=== PATIENT | male | born 1965 | race Caucasian/White ===

== ENCOUNTER → 2016-10-04 | Day surgery (SDC) | payer OTHER ==
[~2016-10-04] VITALS: Ht 177.8 cm; Wt 95.0 kg
[~2016-10-04] MED LIST: BUPIVACAINE HCL PF 0.5% 30 ML VIAL ONE; DEXT 5%-NACL 0.45% 1000 ML INJ 1,000 ML IV SCH; FAMOTIDINE 20 MG/2 ML VIAL ONE; IBUP800T23 PO; LACTATED RINGER'S 1000 ML INJ 1,000 ML ONE; MIDAZOLAM HCL 2 MG/2 ML VIAL ONE; ONDANSETRON HCL 4 MG/2 ML VIAL IV PUSH ONE; POVIDONE IODINE 10% OINT 1 PACKET ONE; PROPOFOL 200 MG/20 ML AMP IV ONE; SODIUM CHLORIDE 0.9% FLUSH 5 ML FLUSH IVF PRN; SODIUM CHLORIDE 0.9% FLUSH 5 ML FLUSH IVF SCH; ceFAZolin 2 GM PREMIX 50 ML ONE
[2016-10-04 07:48] VITALS: BP 130/92; PULSE 78; RESP 20; TEMP 98.3; O2SAT 96
[2016-10-04 08:18] LABS: HEMATOCRIT 40.5 % (39.0-51.0); MEAN CELL VOLUME 91.9 FL (80.0-100.0); MEAN CORPUSCULAR HEMOGLOBIN 31.8 PG (27.0-34.0); MEAN CORPUSCULAR HGB CONC 34.6 % (32.0-36.0); PLATELET COUNT 291 TH/MM3 (150-450); RED BLOOD COUNT 4.41 MIL/MM3 (4.50-5.90); RED CELL DISTRIBUTION WIDTH 12.3 % (11.6-17.2); REVIEW FLAG FINAL; WHITE BLOOD COUNT 5.3 TH/MM3 (4.0-11.0)
--- NOTE | 2016-10-04 09:45 | HP.UPD ---
H&P Update Date: October 04, 2016 Note The Pre-Admit History and Physical Examination regarding the above named patient was reviewed (including, but not limited to, vital signs, medications, allergies, co-morbid conditions), and upon re-examination it is noted that: Indicated with "X" x - the patient's condition has not significantly changed since the last examination. [] - the patient's condition has changed since the last examination. Changes: Babita Guerin MD October 04, 2016 09:45
--- NOTE | 2016-10-04 11:48 | HHI.PR ---
Immediate Post Op Note Procedure Date: October 04, 2016 Pre Op Diagnosis: (1) Mass of finger Post Op Diagnosis: (1) Mass of finger Surgeon: Babita Guerin Conditioner Tender(s): None Procedure: Excision of mass of right index finger. Specimen(s) removed: Mass of right index finger,3.5 x 2.0 cm. Anesthesia: General Drains: None Tourniquet time (min at mmHg) 53 minutes at 220 mm Hg. Patient to: PACU Patient Condition: Good Date/Time of Procedure: SEE SURGICAL CARE RECORD Babita Guerin MD October 04, 2016 11:48
[2016-10-04 12:40] VITALS: BP 149/85; PULSE 78; RESP 16; TEMP 98; O2SAT 99
--- NOTE | 2016-10-06 07:16 | MP ---
cc: CHACHO DUMONT M.D. DATE OF SURGERY 10/04/2016 PREOPERATIVE DIAGNOSIS Mass of right index finger. POSTOPERATIVE DIAGNOSIS Mass of right index finger. PROCEDURES Excision of mass of right index finger. ANESTHESIA General. SURGEON Chacho Dumont MD INDICATIONS A 51-year-old male with slowly growing mass of the right index finger. 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 There were definite bone changes. This included some flattening of the distal portion of the middle phalanx. The origin of the collateral ligament was attached to a portion of bone which had been spared. The tumor did originate from this area and it spread dorsally and palmarlyi. At the completion of the procedure, all of the tumor appeared to have been removed. It measured 3.5 x 2.0 cm. Tourniquet time was 53 minutes. PROCEDURE The patient was seen preoperatively where the site and side were identified and marked. The patient was then taken to the operating room, placed in a supine position. His identity was checked against the arm band and the consent form, site and side confirmed, time-out called prior to beginning the procedure. The right upper extremity was prepped with Hibiclens and draped in the usual sterile fashion. The area to be incised was outlined with a marking pen as a zigzag type incision extending from the dorsal aspect of the tumor to the palmar surface. The oblique portion of the zigzag started dorsally, went palmarly, and then another limb of the incision was designed to go toward the medial part of the finger. The finger was infiltrated with bupivacaine 0.5% plain as a metacarpal head block both palmarly and dorsally. The finger from a glove was placed onto the finger and rolled up to create a tourniquet. At this point a #15 blade was used make a longitudinal incision down through skin, down to the subcutaneous tissue. The incision was started dorsally, went to the palmar surface. The tumor was adjacent to the skin and was carefully dissected free from the skin. The tumor was dissected from the palmar surface and it was well encapsulated in this area. Dissection was then continued dorsally. Some of the dorsal nerves had become part of the tumor and were sacrificed proximally, although there appeared to be no distal end and no function. The dissection was then continued from the palmar surface to the dorsal surface toward the ulnar side of the hand and the tumor was carefully from superficial and deep structures. The origin became clear that it was coming from beneath the extensor tendon just in the area of the head of the middle phalanx. The tumor was amputated at this point and passed off as a pathologic specimen. A rongeur was used to remove the remainder of the tumor. A curette was used to curette the bone from the area where it appeared to have originated. Once this was completed, the area was inspected and suspicious areas for tumor were removed. Once the tumor appeared to have been completely removed, the wound was copiously irrigated with saline and closed with interrupted running 5-0 nylon suture. The excess skin which was dorsally was removed as a dog ear both proximally and distally. Once the tumor was completely removed and the skin was closed, the tourniquet was removed after 53 minutes of tourniquet time. Pressure was applied. After several minutes there was no evidence of any oozing. There is adequate perfusion to all of the tissues and a dressing was applied using povidone-iodine ointment, Adaptic, Telfa, 4x4s and hand wrap. The patient was then taken from the operating room to the recovery room in satisfactory condition having tolerated the procedure well. Postoperative instructions include keeping the arm elevated, keeping the area clean and dry and returning in several days for follow up. The patient was given a prescription for ibuprofen 800 mg every 8 hours as needed for pain. MD FRITZ Casiano/ALEXANDER /11:53 AM /7:02 AM
== END | disposition home or self-care (01) ==
LOC: PHSDC 07:23
PROVIDERS: ATTEND Specialist
DX: M65.9 Synovitis and tenosynovitis, unspecified (principal)
CPT/HCPCS: 00400; 26111; 36415; 85027; 88305; J0690; J2250; J2405; J7120; J3010